=== PATIENT | female | born 1965 | race Caucasian/White ===

== ENCOUNTER 2018-08-27 13:19 | Outpatient (CLI) | payer OTHER | END 2018-08-27 13:20 | disposition home or self-care (01) | LOC: C.DEXAIC 13:19 | DX: Z13.820 Encounter for screening for osteoporosis (principal) ==

== ENCOUNTER 2018-09-06 09:51 | Outpatient (CLI) | payer OTHER | END 2018-09-06 09:52 | disposition home or self-care (01) | LOC: C.CTH 09:51 | DX: R10.2 Pelvic and perineal pain (principal) ==